=== PATIENT | female | born 1985 | race American Indian/Alaskan Native ===

== ENCOUNTER 2019-08-04 09:04 | Outpatient (CLI) | payer MEDICAID | END 2019-08-04 12:20 | disposition home or self-care (01) | LOC: LAB 09:04 → TRG 11:49 → LAB 12:20 | PROVIDERS: ATTEND Obstetrics & Gynecology | DX: O26.893 Other specified pregnancy related conditions, third trimester (principal); Z67.41 Type O blood, Rh negative; Z3A.30 30 weeks gestation of pregnancy | CPT/HCPCS: 86850; 86900; 86901; J2790 ==